=== PATIENT | female | born 1990 | race Caucasian/White ===

== ENCOUNTER 2016-03-29 18:51 | Emergency (ER) | payer OTHER ==
[2016-03-29 19:10] VITALS: BP 122/74; PULSE 95; TEMP 99.7; BMI 25.2
--- NOTE | 2016-03-29 19:46 | PDOC ---
History of Present Illness - General Chief Complaint: Cold Symptoms Stated Complaint: COLD SYMPTOMS Time Seen by Provider: 03/29/16 19:17 History Source: Patient Exam Limitations: No Limitations - History of Present Illness Initial Comments: 03/29/16 19:40 CHIEF COMPLAINT: Fever HISTORY OF PRESENT ILLNESS: This is an otherwise healthy 26-year-old female presents for evaluation of subjective fevers/chills, body ache, dry cough, nasal congestion since yesterday. She has taken DayQuil with some relief of symptoms. She denies chest pain, shortness of breath, or any other symptoms. Patient reports positive home urine test. Vital signs on arrival are notable for oral temperature of 99.7 and pulse of 95. REVIEW OF SYSTEMS: GENERAL/CONSTITUTIONAL: Subjective fevers/chills, bodyaches. No weight change. HEAD, EYES, EARS, NOSE AND THROAT: Nasal congestion. No sore throat. CARDIOVASCULAR: No chest pain or palpitations. RESPIRATORY: Dry cough. No wheezing or shortness of breath. GASTROINTESTINAL: No nausea, vomiting, diarrhea or constipation. GENITOURINARY: No dysuria, frequency, or change in urination. MUSCULOSKELETAL: No joint or muscle swelling or pain. No neck or back pain. SKIN: No rash or easy bruising. NEUROLOGIC: No headache, vertigo, loss of consciousness, or loss of sensation. PSYCHIATRIC: No depression or anxiety. ENDOCRINE: No increased thirst. No abnormal weight change. HEMATOLOGIC/LYMPHATIC: No anemia, easy bleeding, or history of blood clots. ALLERGIC/IMMUNOLOGIC: No hives or skin allergy. No latex allergy. PHYSICAL EXAM: GENERAL: The patient is awake, alert, and fully oriented, in no acute distress. ENT: Pupils equal, round and reactive to light, extraocular movements intact, sclera anicteric, conjunctiva clear. Neck supple. LUNGS: Clear to auscultation bilaterally. Normal excursion. No respiratory distress or use of accessory muscles. CV: RRR, S1/S2, no MRG. Cap refill < 2 sec. ABDOMEN: Soft, non-distended, non-tender. EXTREMITIES: Normal range of motion, no edema. NEUROLOGICAL: Normal speech, normal gait. CN II-XII grossly intact. PSYCH: Normal mood, normal affect. SKIN: Warm, dry, normal turgor, no rashes or lesions noted. Past History - Past Medical History Allergies/Adverse Reactions: Allergies Allergy/AdvReac Type Severity Reaction Status Date / Time No Known Allergies Allergy Verified 03/29/16 19:08 Home Medications: Ambulatory Orders Oseltamivir Phosphate [Tamiflu] 75 mg PO BID #10 capsule 03/29/16 Vits #93/Iron Fum/FA [ Formula Tablet] 1 each PO DAILY #30 tablet 03/29/16 Other medical history: denies - Surgical History Appendectomy: Yes - Psycho/Social/Smoking Cessation Hx Suicidal Ideation: No Smoking History: Never smoked *Physical Exam - Vital Signs Last Vital Signs Temp Pulse Resp BP Pulse Ox 99.7 F H 95 H 18 122/74 99 03/29/16 19:08 03/29/16 19:08 03/29/16 19:08 03/29/16 19:08 03/29/16 19:08 Medical Decision Making - Medical Decision Making 03/29/16 19:46 A/P: 26 year old female with flu-like symptoms, also with + home test. 1. Urine 2. Influenza swab 3. Tylenol 650mg po 4. Reassess 03/29/16 20:04 Urine is positive. 03/29/16 20:13 Flu B positive. Will treat with Tamiflu. *DC/Admit/Observation/Transfer Diagnosis at time of Disposition: Influenza B Qualifiers: Weeks of gestation: unspecified Qualified Code(s): Z33.1 - state, incidental - Discharge Dispostion Admit: No - Prescriptions Prescriptions: Vits #93/Iron Fum/FA [ Formula Tablet] 1 each PO DAILY #30 tablet Oseltamivir Phosphate [Tamiflu] 75 mg PO BID #10 capsule - Referrals Referrals: Joseph St MD [Staff Physician] - Call tomorrow (screen printing cloth spreader) - Patient Instructions Printed Discharge Instructions: DI for Influenza -- Adult Additional Instructions: You are being treated for influenza with Tamiflu. Also take vitamins as prescribed and Tylenol (not Motrin) if needed for fever. Drink plenty of fluids. Follow up with screen printing cloth spreader this week. Return here for difficulty breathing, inability to keep down fluids, or any other concerning symptoms. - Post Discharge Activity Work/School Note: Back to Work
[2016-03-29] MEDS ORDERED: ACETAMINOPHEN 325 MG TABLET (FP) PO ONE (19:47)
[2016-03-29] MEDS ORDERED: ACETAMINOPHEN 325 MG TABLET (FP) ONE (19:50)
[2016-03-29] MEDS ORDERED: OSELTAMIVIR PHOSPHATE 75 MG CAPSULE PO ONE (20:12)
== END 2016-03-29 20:24 | disposition home or self-care (01) ==
LOC: JERFT 18:51
DX: O98.519 Other viral diseases complicating pregnancy, unspecified trimester (principal); J10.1 Influenza due to other identified influenza virus with other respiratory manifestations; Z3A.00 Weeks of gestation of pregnancy not specified
CPT/HCPCS: 84703; 87804; 99281-25

== ENCOUNTER 2016-04-12 18:28 | Emergency (ER) | payer OTHER ==
[2016-04-12 18:49] VITALS: BP 122/75; PULSE 79; TEMP 98.5; BMI 27.2
--- NOTE | 2016-04-12 20:20 | PDOC ---
*Physical Exam - Vital Signs Last Vital Signs Temp Pulse Resp BP Pulse Ox 98.5 F 79 20 122/75 100 04/12/16 18:46 04/12/16 18:46 04/12/16 18:46 04/12/16 18:46 04/12/16 18:46 ED Treatment Course - LABORATORY CBC & Chemistry Diagram: 04/12/16 22:36 Medical Decision Making - Medical Decision Making 04/12/16 20:20 agree with care from SHANNON Ceja *DC/Admit/Observation/Transfer Diagnosis at time of Disposition: Threatened in first trimester - Discharge Dispostion Disposition: HOME Condition at time of disposition: Good - Referrals Referrals: STAFF,NOT ON [Primary Care Provider] - Martir Fan MD [Staff Physician] - - Patient Instructions Printed Discharge Instructions: DI for Threatened Additional Instructions: As discussed, please return to the ER in TWO DAYS for a repeat test of your hormones. If you experience severe abdominal pain, excessive vaginal bleeding (more than one soaked pad an hour), fever, chills, nausea, vomiting, diarrhea, or any new or worsening symptoms, please return to the ER.
--- NOTE | 2016-04-12 21:08 | PDOC ---
History of Present Illness - General Chief Complaint: Vaginal Bleeding Stated Complaint: VAGINAL BLEEDING Time Seen by Provider: 04/12/16 20:08 - History of Present Illness Initial Comments: 04/12/16 21:07 CHIEF COMPLAINT: vaginal bleeding, 6 weeks preg HISTORY OF PRESENT ILLNESS: 26 yo 6 wk F with no PMH presents to ED with vaginal bleeding x 2 days. Her LMP was 12/3 and had a positive test a few weeks ago. She started spotting yesterday but has not had any soaked pads. She reports intermittent mild cramping, but no abdominal pain. She denies any fever, chills, nausea, vomiting, diarrhea, or urinary symptoms. She has not seen an OBGYN yet because she has been trying to find one that will accept her insurance. No recent travel or sick contacts. PAST MEDICAL HISTORY: Denies past medical history FAMILY HISTORY: father's side with diabetes SOCIAL HISTORY: Denies tobacco, alcohol, illicit drug use. SURGICAL HISTORY: Denies ALLERGIES: No known drug allergies REVIEW OF SYSTEMS General/Constitutional: Denies fever or chills. Denies weakness, weight change. HEENT: Denies change in vision. Denies ear pain or discharge. Denies sore throat. Cardiovascular: Denies chest pain or shortness of breath. Respiratory: Denies cough, wheezing, or hemoptysis. Gastrointestinal: Denies nausea, vomiting, diarrhea or constipation. Denies rectal bleeding. Genitourinary: Denies dysuria, frequency, or change in urination. Musculoskeletal: Denies joint or muscle swelling or pain. Denies neck or back pain. Skin and breasts: Denies rash or easy bruising. Neurologic: Denies headache, vertigo, loss of consciousness, or loss of sensation. PHYSICAL EXAM General Appearance: Well-appearing, appropriately dressed. No apparent distress , no intoxication. HEENT: EOMI, PERRLA, normal ENT inspection, normal voice, TMs normal, pharynx normal. No conjunctival pallor. No photophobia, scleral icterus. Neck: Supple. Trachea midline. No tenderness, rigidity, carotid bruit, stridor , lymphadenopathy, or thyromegaly. Respiratory/Chest: Lungs CTAB. No shortness of breath, chest tenderness, respiratory distress, accessory muscle use. No crackles, rales, rhonchi, stridor , wheezing, dullness Cardiovascular: RRR. S1, S2. No JVD, murmur, bradycardia, tachycardia. Vascular Pulses: Dorsalis-Pedis (R): 2+, Dorsalis-Pedis (L): 2+ Gastrointestinal/Abdominal: Normal bowel sounds. Abdomen soft, non-distended. No tenderness or rebound tenderness. No organomegaly, pulsatile mass, guarding , hernia, hepatomegaly, splenomegaly. Pelvic: Light yellow-green discharge to vaginal vault. No bleeding. External genitalia normal without lesions. Cervix is long and closed. No cervical motion tenderness. Uterus is nontender and normal in size. Adnexa are nontender and without masses. Lymphatic: No adenopathy, tenderness. Musculoskeletal/Extremities: Normal inspection. FROM of all extremities, normal capillary refill. Pelvis Stable. No CVA tenderness. No tenderness to extremities, pedal edema, swelling, erythema or deformity. Integumentary: Appropriate color, dry, warm. No cyanosis, erythema, jaundice or rash Neurologic: route carrier II-XII intact. Fully oriented, alert. Appropriate mood/affect. Motor strength 5/5. No appreciable EOM palsy, facial droop or sensory deficit. 04/12/16 21:10 04/12/16 22:50 Past History - Past Medical History Allergies/Adverse Reactions: Allergies Allergy/AdvReac Type Severity Reaction Status Date / Time No Known Allergies Allergy Verified 04/12/16 18:49 Home Medications: Ambulatory Orders Oseltamivir Phosphate [Tamiflu] 75 mg PO BID #10 capsule 03/29/16 Vits #93/Iron Fum/FA [ Formula Tablet] 1 each PO DAILY #30 tablet 03/29/16 Other medical history: NONE - Surgical History Appendectomy: Yes - Psycho/Social/Smoking Cessation Hx Suicidal Ideation: No Smoking History: Never smoked Substance Use Type: None *Physical Exam - Vital Signs Last Vital Signs Temp Pulse Resp BP Pulse Ox 98.5 F 79 20 122/75 100 04/12/16 18:46 04/12/16 18:46 04/12/16 18:46 04/12/16 18:46 04/12/16 18:46 ED Treatment Course - LABORATORY CBC & Chemistry Diagram: 04/12/16 22:36 *DC/Admit/Observation/Transfer Diagnosis at time of Disposition: Threatened in first trimester - Discharge Dispostion Disposition: HOME Condition at time of disposition: Stable Admit: No - Referrals Referrals: STAFF,NOT ON [Primary Care Provider] - Martir Fan MD [Staff Physician] - - Patient Instructions Printed Discharge Instructions: DI for Threatened Additional Instructions: As discussed, please return to the ER in TWO DAYS for a repeat test of your hormones. If you experience severe abdominal pain, excessive vaginal bleeding (more than one soaked pad an hour), fever, chills, nausea, vomiting, diarrhea, or any new or worsening symptoms, please return to the ER.
[2016-04-12 22:46] LABS: BASOPHIL 0.5 % (0-2.0); EOSINOPHIL 0.5 % (0-4.5); MCH 30.6 pg (25.7-33.7); MCHC 34.3 g/dl (32.0-36.0); MEAN CELL VOLUME 89.1 fl (80-96); MEAN PLT VOLUME 7.8 fl (7.5-11.1); PLATELET COUNT 335 K/MM3 (134-434); RDW 12.6 % (11.6-15.6); WHITE BLOOD COUNT 16.6 K/mm3 (4.0-10.0)
[2016-04-12 22:49] LABS: URINE APPEARANCE CLEAR; URINE BILIRUBIN NEGATIVE (NEGATIVE); URINE BLOOD NEGATIVE (NEGATIVE); URINE COLOR LTYELLOW; URINE GLUCOSE (UA) NEGATIVE (NEGATIVE); URINE KETONE 2+ (NEGATIVE); URINE LEUK ESTERASE NEGATIVE (NEGATIVE); URINE NITRITE NEGATIVE (NEGATIVE); URINE PROTEIN NEGATIVE (NEGATIVE); URINE UROBILINOGEN NEGATIVE E.U./dl (0.2-1.0)
== END 2016-04-12 23:34 | disposition home or self-care (01) ==
LOC: JER 18:28
DX: O20.0 Threatened abortion (principal); Z3A.01 Less than 8 weeks gestation of pregnancy
CPT/HCPCS: 36415; 81003; 84702; 85025; 87086; 87491; 87591; 99284-25

== ENCOUNTER 2016-04-14 22:23 | Emergency (ER) | payer OTHER ==
[2016-04-14 22:48] VITALS: BP 131/65; PULSE 71; TEMP 97.7; BMI 55.6
--- NOTE | 2016-04-14 23:26 | PDOC ---
*Physical Exam - Vital Signs Last Vital Signs Temp Pulse Resp BP Pulse Ox 97.7 F 71 14 131/65 100 04/14/16 22:45 04/14/16 22:45 04/14/16 22:45 04/14/16 22:45 04/14/16 22:45 ED Treatment Course - LABORATORY CBC & Chemistry Diagram: 04/14/16 23:23 Medical Decision Making - Medical Decision Making 04/14/16 23:25 Pt seen by the Advanced Practice Provider under my direct supervision Ancillary studies reviewed I agree with plan as outlined by the Advanced Practice Provider WOJCIECH Ferrell *DC/Admit/Observation/Transfer Diagnosis at time of Disposition: , Threatened in first trimester - Discharge Dispostion Disposition: HOME Condition at time of disposition: Stable - Referrals Referrals: Fernanda Joseph MD [Staff Physician] - STAFF,NOT ON [Primary Care Provider] - - Patient Instructions Printed Discharge Instructions: DI for Threatened Additional Instructions: Pelvic rest Increase fluids Follow up with your Director Learning And Development or the one listed on your discharge sheet Return back to the Er for recurrent vaginal bleed, pain
[2016-04-14 23:34] LABS: BASOPHIL 1.4 % (0-2.0); EOSINOPHIL 1.2 % (0-4.5); MCH 30.4 pg (25.7-33.7); MCHC 34.2 g/dl (32.0-36.0); MEAN CELL VOLUME 88.8 fl (80-96); MEAN PLT VOLUME 8.2 fl (7.5-11.1); NEUTROPHILS 66.2 % (42.8-82.8); PLATELET COUNT 288 K/MM3 (134-434); RDW 12.7 % (11.6-15.6); WHITE BLOOD COUNT 12.7 K/mm3 (4.0-10.0)
--- NOTE | 2016-04-14 23:51 | PDOC ---
History of Present Illness - General Chief Complaint: Revisit,Burn Stated Complaint: FOLLOW UP Time Seen by Provider: 04/14/16 23:23 History Source: Patient Exam Limitations: No Limitations - History of Present Illness Associated Symptoms: reports: denies symptoms Past History - Travel Traveled outside of the country in the last 30 days: No Close contact w/someone who was outside of country & ill: No - Past Medical History Allergies/Adverse Reactions: Allergies Allergy/AdvReac Type Severity Reaction Status Date / Time No Known Allergies Allergy Verified 04/14/16 22:45 Home Medications: Ambulatory Orders NK [No Known Home Medication] 04/12/16 - Surgical History Appendectomy: Yes - Reproductive History (#): 3 Para: 1 Therapeutic (s) & number: Yes (X1) - Psycho/Social/Smoking Cessation Hx Suicidal Ideation: No Smoking History: Never smoked Number of Cigarettes Smoked Daily: 0 Information on smoking cessation initiated: No Hx Alcohol Use: No Drug/Substance Use Hx: No Substance Use Type: None Review of Systems - Review of Systems Able to Perform ROS?: Yes Comments:: 04/14/16 23:47 CONSTITUTIONAL: Absent: fever, chills, diaphoresis, generalized weakness, malaise, loss of appetite HEENT: Absent: rhinorrhea, nasal congestion, throat pain, throat swelling, difficulty swallowing, mouth swelling, ear pain, eye pain, visual Changes CARDIOVASCULAR: Absent: chest pain, loss of consciousness, palpitations, irregular heart rate, peripheral edema RESPIRATORY: Absent: cough, shortness of breath, dyspnea with exertion, orthopnea, wheezing, stridor, hemoptysis GASTROINTESTINAL: Absent: abdominal pain, abdominal distension, nausea, vomiting, diarrhea, constipation, melena, hematochezia GENITOURINARY: Absent: dysuria, frequency, urgency, hesitancy, hematuria, flank pain, genital pain HEMATOLOGIC/IMMUNOLOGIC: Absent: easy bleeding, easy bruising, lymphadenopathy, frequent infections ENDOCRINE: Absent: unexplained weight gain, unexplained weight loss, heat intolerance, cold intolerance NEUROLOGIC: Absent: headache, focal weakness or paresthesias, dizziness, unsteady gait, seizure, mental status changes, bladder or bowel incontinence PSYCHIATRIC: Absent: anxiety, depression, suicidal or homicidal ideation, hallucinations. 04/14/16 23:51 Is the patient limited Irish proficient: No *Physical Exam - Vital Signs Last Vital Signs Temp Pulse Resp BP Pulse Ox 97.7 F 71 14 131/65 100 04/14/16 22:45 04/14/16 22:45 04/14/16 22:45 04/14/16 22:45 04/14/16 22:45 - Physical Exam Comments: 04/14/16 23:52 GENERAL: Well developed, well nourished. Awake and alert. No acute distress. CARDIOVASCULAR: Regular rate and rhythm. No murmurs, rubs, or gallops. Distal pulses are 2+ and symmetric. PULMONARY: No evidence of respiratory distress. Lungs clear to auscultation bilaterally. No wheezing, rales or rhonchi. ABDOMINAL: Soft. Non-tender. Non-distended. No rebound or guarding. No organomegaly. Normoactive bowel sounds. SKIN: Warm and dry. Normal capillary refill. No rashes. No jaundice. NEUROLOGICAL: Alert, awake, appropriate. Cranial nerves 2-12 intact. No deficits to light touch and temperature in face, upper extremities and lower extremities. No motor deficits in the in face, upper extremities and lower extremities. Normoreflexic in the upper and lower extremities. Normal speech. Toes are down- going bilaterally. Gait is normal without ataxia. PSYCHIATRIC: Cooperative. Good eye contact. Appropriate mood and affect. 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 FINDINGS: There is an intrauterine gestational sac containing a pole and yolk sac. heart rate 142 beats per minute Approximate age of 6 weeks, 2 days by mean crown-rump length of 0.52 cm There is no evidence of subchorionic hemorrhage The ovaries are normal in size, both containing small follicles Flow is demonstrated to both ovaries on Doppler evaluation No adnexal masses No free fluid THIS DOCUMENT HAS BEEN ELECTRONICALLY SIGNED Adan Marcum MD *DC/Admit/Observation/Transfer Diagnosis at time of Disposition: Threatened in first trimester Qualifiers: Weeks of gestation: less than 8 weeks Qualified Code(s): Z3A.01 - Less than 8 weeks gestation of - Discharge Dispostion Condition at time of disposition: Stable Admit: No - Referrals Referrals: STAFF,NOT ON [Primary Care Provider] - Fernanda Joseph MD [Staff Physician] - - Patient Instructions Printed Discharge Instructions: DI for Threatened Additional Instructions: Pelvic rest Increase fluids Follow up with your Lead Case Manager or the one listed on your discharge sheet Return back to the Er for recurrent vaginal bleed, pain Progress Note - Progress Note Progress Note: LMP 03/02/2016 26 yo female presents to the emergency department for a repeat BHCG. Patient was seen in the emergency department 2 days ago for vaginal spotting without abdominal pains, fever/chills, nausea/vomiting/diarrhea or urinary symptoms. Patient denies any symptoms since being discharged from the emergency department 2 days ago. Patient says she plans to follow with an winding operator sometime next week.
== END 2016-04-15 01:40 | disposition home or self-care (01) ==
LOC: JER 22:23
DX: O20.0 Threatened abortion (principal); Z3A.01 Less than 8 weeks gestation of pregnancy
CPT/HCPCS: 36415; 76801-TC; 84702; 85025; 86850; 86900; 86901; 99281-25